=== PATIENT | female | born 1985 | race Caucasian/White ===

== ENCOUNTER 2019-12-05 16:24 | Outpatient (CLI) | payer MEDICAID ==
[2019-12-05] MEDS ORDERED: RINGERS SOLUTION,LACTATED 1,000 ML IV PRN (16:38)
[2019-12-05] MEDS ORDERED: ONDANSETRON HCL INJ/PF 4 MG/2 ML SDV IV ONE (16:38)
[2019-12-05] MEDS ORDERED: ONDANSETRON HCL INJ/PF 4 MG/2 ML SDV ONE (17:01)
[2019-12-05 17:35] LABS: APPEARANCE,URINE CLOUDY; BILIRUBIN,URINE NEGATIVE (NEGATIVE); COLOR,URINE YELLOW; GLUCOSE, URINE NEGATIVE (NEGATIVE); KETONES,URINE 20 mg/dL (NEGATIVE); LEUKOCYTE ESTERASE,URINE TRACE (NEGATIVE); NITRITE,URINE NEGATIVE (NEGATIVE); PROTEIN,URINE NEGATIVE (NEGATIVE); UROBILINOGEN,URINE NEGATIVE mg/dL (<2.0)
--- NOTE | 2019-12-05 17:56 | Non Stress Test Report ---
Non Stress Test Datetime Report Generated by CPN: 12/05/2019 17:55 DEMOGRAPHIC Test Number: 1 EGA NST: 38.2 INDICATION Indication for Study (NST) Other: labor check VITAL SIGNS Temperature - NST: 98.8 Pulse - NST: 83 RESP - NST: 16 NBPSYS NST: 113 NBPDIA NST: 66 MONITORING Monitor Explained: Monitor Explained; Test Explained; Patient Verbalized Understanding Time on Monitor: 12/05/2019 16:46 Time off Monitor: 12/05/2019 17:52 NST Duration: 66 NST INTERVENTIONS NST Interventions: PO Hydration; IV Fluids; Reposition Patient Physician Notified NST: Dr Mederos BABY A: [id number] BABY A Movement : Present Contraction Frequency : 4-8 FHR Baseline : 140 Accelerations : 15X15 Decelerations : None Variability : Moderate 6-25bpm NST Review: Meets Criteria for Reactive NST NST Review and Verified By : LEWIS HALE RN NST Results: Reactive NST REPORT Report Trigger: Send Report
[2019-12-05 18:09] LABS: URINE BARBITURATES SCREEN NEGATIVE; URINE BENZODIAZEPINES SCREEN NEGATIVE; URINE COCAINE SCREEN NEGATIVE; URINE MARIJUANA (THC) SCREEN NEGATIVE; URINE METHADONE SCREEN NEGATIVE; URINE PHENCYCLIDINE SCREEN NEGATIVE
[2019-12-05 18:15] LABS: URINE AMPHETAMINES SCREEN UNCONFIRMED POSITIVE
== END 2019-12-05 18:10 | disposition home or self-care (01) ==
LOC: LC 16:24
PROVIDERS: ATTEND Student in an Organized Health Care Education/Training Program
DX: O99.283 Endocrine, nutritional and metabolic diseases complicating pregnancy, third trimester (principal); E86.0 Dehydration; O21.2 Late vomiting of pregnancy; Z3A.38 38 weeks gestation of pregnancy
CPT/HCPCS: 59025; 36415; 81005; 80307 ×2; G0480; J2405

== ENCOUNTER 2019-12-24 18:29 | Inpatient (IN) | payer MEDICAID ==
[2019-12-24] MEDS ORDERED: DINOPROSTONE 10 MG VAGINAL INSERT.SR PV PRN (19:19)
[2019-12-24] MEDS ORDERED: OXYTOCIN/NORMAL SALINE 20 UNIT/1,000 ML RTUINJ IV PRN (19:19)
[2019-12-24] MEDS ORDERED: RINGERS SOLUTION,LACTATED 1,000 ML IV ONE (19:20)
[2019-12-24] MEDS ORDERED: DINOPROSTONE 10 MG VAGINAL INSERT.SR ONE (19:42)
[2019-12-24] MEDS: RINGERS SOLUTION,LACTATED 1,000 ML IV PRN (19:55)
[2019-12-24 20:34] LABS: ABSOLUTE LYMPHOCYTES (AUTO) 1.5 10^3/uL (0.5-4.7); ABSOLUTE NEUT (AUTO) 7.7 10^3/uL (1.7-8.2); BASOPHILS % (AUTO) 0.1 % (0-2); EOSINOPHILS % (AUTO) 0.5 % (0-6); HEMATOCRIT 35.6 % (36.0-47.0); HEMOGLOBIN 12.6 g/dL (12.0-15.5); LYMPHOCYTES % (AUTO) 14.7 % (13-45); MEAN CORPUSCULAR HEMOGLOBIN 35.1 pg (27.0-33.4); MEAN CORPUSCULAR HGB CONC 35.3 g/dL (32.0-36.0); MEAN CORPUSCULAR VOLUME 99 fl (80-97); MONOCYTES % (AUTO) 9.5 % (3-13); PLATELET COUNT 160 10^3/uL (150-450); RED BLOOD COUNT 3.58 10^6/uL (3.72-5.28); RED CELL DISTRIBUTION WIDTH 13.3 % (11.5-14.0); SEGMENTED NEUTROPHILS % (AUTO) 75.2 % (42-78); TOTAL CELLS COUNTED % (AUTO) 100 %; WHITE BLOOD COUNT 10.3 10^3/uL (4.0-10.5)
[2019-12-24 22:42] LABS: APPEARANCE,URINE CLOUDY; BILIRUBIN,URINE NEGATIVE (NEGATIVE); COLOR,URINE YELLOW; GLUCOSE, URINE NEGATIVE (NEGATIVE); KETONES,URINE NEGATIVE (NEGATIVE); LEUKOCYTE ESTERASE,URINE TRACE (NEGATIVE); NITRITE,URINE NEGATIVE (NEGATIVE); PROTEIN,URINE NEGATIVE (NEGATIVE); UROBILINOGEN,URINE NEGATIVE mg/dL (<2.0)
[2019-12-24 23:01] LABS: URINE AMPHETAMINES SCREEN NEGATIVE; URINE BARBITURATES SCREEN NEGATIVE; URINE BENZODIAZEPINES SCREEN NEGATIVE; URINE COCAINE SCREEN NEGATIVE; URINE MARIJUANA (THC) SCREEN NEGATIVE; URINE METHADONE SCREEN NEGATIVE; URINE PHENCYCLIDINE SCREEN NEGATIVE
[2019-12-25] MEDS ORDERED: PROMETHAZINE HCL INJ 25 MG/1 ML VIAL IV ONE (04:55)
[2019-12-25] MEDS ORDERED: HYDROMORPHONE HCL INJ/PF 2 MG/ML AMPULE IV ONE (04:56)
[2019-12-25] MEDS ORDERED: PROMETHAZINE HCL INJ 25 MG/1 ML VIAL ONE (04:58)
[2019-12-25] MEDS ORDERED: HYDROMORPHONE HCL INJ/PF 2 MG/ML AMPULE ONE (04:58)
--- NOTE | 2019-12-25 06:14 | Admission Physical ---
Datetime Report Generated by CPN: 12/25/2019 06:14 CURRENT ADMISSION Chief Complaint: Scheduled Induction of Labor Indication for Induction: Post Dates Admit Impression : Term, Intrauterine Admit Plan: Admit to Unit Admit Plan- Other: SROM @ 300 am ALLERGIES Medication Allergies: No Medication Allergies: No Known Allergies (12/24/2019) Latex: No Latex Allergies OBSTETRICAL HISTORY EDC: 12/17/2019 00:00 : 1 Para: 0 Term: 0 : 0 SAB: 0 IAB: 0 Ectopic: 0 Livin Cesareans: 0 VBACs: 0 Multiple Births: 0 Gestational Diabetes: No Rh Sensitization: No Incompetent Cervix: No EZEQUIEL: No Infertility: No ART Treatment: No Uterine Anomaly: No IUGR: No Hx Previous C/S: No Macrosomia: No Hx Loss/Stillborn: No PIH: No Hx : No Placenta Previa/Abruption: No Depression/PP Depression: No PTL/PROM: No Post Hemorrhage: No Current Procedures: Ultrasound Obstetrical History Comments: G1-Current SEE RECORDS Alcohol: Yes Alcohol Frequency: Occasional Alcohol Comments: Not during Marijuana : No Cocaine: No Other Illicit Drugs: No Cigarettes: Former Smoker. [id number] Cigarette Comments: Stopped when she found out she was MEDICAL HISTORY Diabetes: No Blood Transfusion: No Pulmonary Disease (Asthma, TB): No Breast Disease: No Hypertension: No Ax Survey Worker Surgery: No Heart Disease: No Hosp/Surgery: No Autoimmune Disorder: No Anesthetic Complications: No Kidney Disease: No Abnormal Pap Smear: No Neuro/Epilepsy: No Psychiatric Disorders: No Other Medical Diseases: No Hepatitis/Liver Disease: No Significant Family History: No Varicosities/Phlebitis: No Trauma/Violence : No Thyroid Dysfunction: No INFECTIOUS HISTORY Gonorrhea: No Genital Herpes: No Chlamydia: No Tuberculosis: No Syphilis: No Hepatitis: No HIV/AIDS Exposure: No Rash or Viral Illness: No HPV: No PHYSICAL EXAM General: Normal HEENT: Normal Neurologic: Normal Thyroid: Normal Heart: Normal Lungs: Normal Breast: Normal Back: Normal Abdomen: Normal Genitourinary Exam: Normal Extremities: Normal DTRs: Normal Pelvic Type: Adequate Vital Signs: Reviewed; Within Normal Limits VAGINAL EXAM Dilatation: 1 Effacement: 80 Station: -2 MEMBRANES Pooling: Positive Membranes: Ruptured Amniotic Fluid Color: Clear FETUS A EGA: 41.1 Monitoring: External US FHR- Baseline: 140 Variability: Moderate 6-25bpm Accelerations: 15X15 Decelerations: None FHR Category: Category I Estimated Weight (gm): 3600 Presentation: Vertex PLANS FOR LABOR AND DELIVERY Labor and Delivery: None Pain Management: Epidural Feeding Preference: Breast Circumcision: Yes INFORMED CONSENT Signature: with User ID: [email or web address]
[2019-12-25] MEDS ORDERED: PHENYLEPHRINE HCL INJ/PF 10 MG/1 ML SDV ONE (07:26)
[2019-12-25] MEDS ORDERED: EPHEDRINE SULFATE INJ 50 MG/1 ML AMPULE ONE (07:26)
[2019-12-25] MEDS ORDERED: FENTANYL CITRATE INJ/PF 100 MCG/2 ML AMPUL ONE (07:26)
[2019-12-25] MEDS ORDERED: BUPIVACAINE HCL 0.25 % INJ/PF (2.5 MG/1 ML) 30 ML VIAL ONE ×2 (07:27→10:11)
[2019-12-25] MEDS ORDERED: FENTANYL/BUPIVACAINE/NS/PF 300 MCG/150 ML RTUINJ EPI ONE (07:27)
[2019-12-25] MEDS ORDERED: OXYTOCIN 10 UNIT/ML VIAL ONE (07:39)
[2019-12-25] MEDS ORDERED: OXYTOCIN/NORMAL SALINE 20 UNIT/1,000 ML RTUINJ ONE (07:40)
[2019-12-25] MEDS ORDERED: LIDOCAINE 1% INJ-PF (10 MG/ML) 30 ML SDV ONE (07:40)
[2019-12-25] MEDS ORDERED: MISOPROSTOL 0.2 MG TABLET ONE (07:40)
[2019-12-25] MEDS ORDERED: OXYTOCIN/NORMAL SALINE 20 UNIT/1,000 ML RTUINJ IV PRN ×2 (08:49→15:50)
[2019-12-25] MEDS ORDERED: LIDOCAINE 2% INJ-PF (20 MG/ML) 10 ML AMPUL ONE (09:42)
[2019-12-25] MEDS: RINGERS SOLUTION,LACTATED 1,000 ML IV PRN (11:21)
[2019-12-25] MEDS ORDERED: GLYCERIN/WITCH HAZEL LEAF 1 EACH MED..WIPE TP PRN (15:50)
[2019-12-25] MEDS ORDERED: ZOLPIDEM TARTRATE 5 MG TABLET PO PRN (15:50)
[2019-12-25] MEDS ORDERED: BENZOCAINE/MENTHOL AEROSOL SPRAY 56 ML TOP PRN (15:50)
[2019-12-25] MEDS ORDERED: PSEUDOEPHEDRINE HCL 30 MG TABLET PO PRN (15:50)
[2019-12-25] MEDS ORDERED: PROMETHAZINE HCL 25 MG TABLET PO PRN (15:50)
[2019-12-25] MEDS ORDERED: DIPH/PERTUSS(ACELL)/TETANUS VAC/PF 0.5 ML SYR (>=10YO) IM PRN (15:50)
[2019-12-25] MEDS ORDERED: ACETAMINOPHEN WITH CODEINE #3 TABLET PO PRN ×2 (15:50)
[2019-12-25] MEDS ORDERED: MEASLES,MUMPS&RUBELLA VACC/PF 0.5 ML VIAL SUBCUT PRN (15:50)
[2019-12-25] MEDS ORDERED: DIBUCAINE 1% OINTMENT 28 GM TP PRN (15:50)
[2019-12-25] MEDS ORDERED: ACETAMINOPHEN 650 MG SUPP.RECT PR PRN (15:50)
[2019-12-25] MEDS ORDERED: PROMETHAZINE HCL 25 MG SUPP.RECT PR PRN (15:50)
[2019-12-25] MEDS ORDERED: DIPHENHYDRAMINE HCL 25 MG CAPSULE PO PRN (15:50)
[2019-12-25] MEDS ORDERED: NA PHOS,M-B/NA PHOS,DI-BA (ADULT) 133 ML ENEMA PR PRN (15:50)
[2019-12-25] MEDS ORDERED: MAGNESIUM HYDROXIDE SUSP 30 ML UDCUP PO PRN (15:50)
[2019-12-25] MEDS ORDERED: PROMETHAZINE HCL INJ 25 MG/1 ML VIAL IV PRN (15:50)
--- NOTE | 2019-12-25 17:23 | Delivery Summary ---
Del Sum A-C Datetime Report Generated by CPN: 12/25/2019 17:22 DELIVERY PERSONNEL DELIVERY PERSONNEL: [id number] Delivery Doctor:: Yaima Ramirez CNM Labor and Delivery Nurse:: Kaity Valdez RNbookmaker's clerk Nurse:: JASON Nj Shoeshiner/MANAGEMENT EXPERT: Sana Anthony Dixonon, MILITARY SOURCE OPERATIONS SPECIALIST MATERNAL INFORMATION Delivery Anesthesia: Local; Epidural Medications After Delivery: Pitocin Bolus-Please Comment; Pitocin Drip 20 Units/1000ml NSS Meds After Delivery Comment: 20 Units Pitocin/ 1000 ml NS Delivery QBL: 150 Maternal Complications: None Provider Comments: LOP, VIABLE MALE WITH SPONTANEOUS CRY. LOOSE NUCHAL CORD-DELIVERED THROUGH. CORD DOUBLE CLAMPED AND CUT. SPONTANEOUS PLACENTA WITH 3VC. 2ND DEGREE PERINEAL LACERATION REPAIRED UNDER EPIDURAL AND LOCAL ANESTHESIA. MOTHER AND INFANT STABLE IN L_D#1 LABOR SUMMARY EDC: 12/17/2019 00:00 No. Babies in Womb: 1 Attempted: No Labor Anesthesia: Epidural LABOR INFORMATION Reason for Induction: Postterm Onset of Labor: 12/25/2019 06:30 Complete Dilatation: 12/25/2019 14:35 Cervical Ripening Agents: Cervidil Oxytocin: Induction Group B Beta Strep: negative Antibiotics # of Doses: 0 Antibiotics Time of Last Dose: n/a Name of Antibiotic Given: n/a Steroids Given: None Reason Steroids Not Administered: Not Applicable MEMBRANES Membranes Rupture Method: Spontaneous Rupture of Membranes: 12/25/2019 03:30 Length of Rupture (hr): 12.02 Amniotic Fluid Color: Bloody Amniotic Fluid Amount: Small Amniotic Fluid Odor: Normal STAGES OF LABOR Stage 1 hr: 8 Stage 1 min: 5 Stage 2 hr: 0 Stage 2 min: 56 Stage 3 hr: 0 Stage 3 min: 5 Total Time in Labor hr: 9 Total Time in Labor min: 6 VAGINAL DELIVERY Episiotomy: None Laceration #1: Perineal Laceration Extension #1: Second Degree Laceration Repair: Yes Sponge Count Correct: N/A Sharps Count Correct: N/A CSECTION DELIVERY Primary Indication: N/A Secondary Indication: N/A CSection Incidence: N/A Labor: N/A Elective: N/A CSection Incision: N/A BABY A INFORMATION Infant Delivery Date/Time: 12/25/2019 15:31 Method of Delivery: Vaginal Nurse Controlled Delivery: No Born in Route : No : N/A Forceps: N/A Vacuum Extraction: N/A Shoulder Dystocia : No PRESENTATION/POSITION BABY A Presentation: Cephalic Cephalic Presentation: Vertex Vertex Position: Right Occipital Posterior Breech Presentation: N/A PLACENTA INFORMATION BABY A Placenta Delivery Time : 12/25/2019 15:36 Placenta Method of Delivery: Spontaneous Placenta Status: Delivered SCORES BABY A Heart Rate 1 min: >100 bpm Resp Effort 1 min: Good Cry Reflex Irritability 1 min: Cough or Sneeze or Pulls Away Muscle Tone 1 min: Active Motion Color 1 min: Blue/Pale Resuscitation Effort 1 min: Tactile Stimulation SCORE 1 MIN: 8 Heart Rate 5 min: >100 bpm Resp Effort 5 min: Good Cry Reflex Irritability 5 min: Cough or Sneeze or Pulls Away Muscle Tone 5 min: Active Motion Color 5 min: Body [place], Extremities Blue Resuscitation Effort 5 min: N/A SCORE 5 MIN: 9 Resuscitation Effort 10 min: N/A INFORMATION BABY A Gestational Age at Delivery: 41.1 Gestational Status: Late Term- 41- 41.6 Weeks Infant Outcome : Liveborn Condition : Stable Sex: Male IDENTIFICATION BABY A Verification Date/Time: 12/25/2019 15:46 ID Band Number: [id number] Mother's Name Verified: Yes Infant RN Verifying : Toñito Riley, RN Additional Verifying Personnel: RFrancisco J Valdez, RN WEIGHT/LENGTH BABY A Birthweight (gm): 3410 Weight (lb): 7 Weight (oz): 8 Infant Length (in): 20.00 Length (cm): 50.80 CORD INFORMATION BABY A No. Cord Vessels: 3 Nuchal Cord : Around Neck x1, Loose Cord Blood Taken: Yes-For Storage (Mom's Blood type +) Infant Suction: None ASSESSMENT BABY A Infant Complications: Multiple Variable Decels; Meconium Complications- Other: terminal mec Physical Findings at Delivery: Caput Succedaneum; Molding of the Head Infant Respirations: Appears Normal Skin to Skin: Yes Instrument Maintenance Supervisor/ALS Called : No Care By: Letitia duronlucityra Transferred To: Remains with Mother BABY B INFORMATION : N/A SIGNATURES Assignment: Alexei Becker MD Signature: with User ID: [email or web address] : with User ID: [email or web address] : I was personally available for consultation and serving as supervising physician for the MLP.
[2019-12-25] MEDS: IBUPROFEN 800 MG TABLET PO SCH ×2 (17:36→22:15)
[2019-12-25] MEDS: DOCUSATE SODIUM 100 MG CAPSULE PO SCH (18:54)
[2019-12-25] MEDS: FERROUS SULFATE 325 MG TABLET PO SCH (18:54)
[2019-12-25] MEDS: FAMOTIDINE 20 MG TABLET PO SCH (22:17)
[2019-12-26] MEDS: IBUPROFEN 800 MG TABLET PO SCH ×3 (06:10→21:35)
[2019-12-26 06:26] LABS: ABSOLUTE EOSINOPHILS # (AUTO) 0.1 10^3/uL (0.0-0.6); ABSOLUTE LYMPHOCYTES (AUTO) 1.7 10^3/uL (0.5-4.7); ABSOLUTE NEUT (AUTO) 9.5 10^3/uL (1.7-8.2); BASOPHILS % (AUTO) 0.3 % (0-2); EOSINOPHILS % (AUTO) 0.4 % (0-6); HEMATOCRIT 30.3 % (36.0-47.0); HEMOGLOBIN 10.7 g/dL (12.0-15.5); LYMPHOCYTES % (AUTO) 13.6 % (13-45); MEAN CORPUSCULAR HEMOGLOBIN 35.3 pg (27.0-33.4); MEAN CORPUSCULAR HGB CONC 35.3 g/dL (32.0-36.0); MEAN CORPUSCULAR VOLUME 100 fl (80-97); MONOCYTES % (AUTO) 8.4 % (3-13); PLATELET COUNT 114 10^3/uL (150-450); RED BLOOD COUNT 3.03 10^6/uL (3.72-5.28); RED CELL DISTRIBUTION WIDTH 13.5 % (11.5-14.0); SEGMENTED NEUTROPHILS % (AUTO) 77.3 % (42-78); TOTAL CELLS COUNTED % (AUTO) 100 %; WHITE BLOOD COUNT 12.3 10^3/uL (4.0-10.5)
[2019-12-26] MEDS: FAMOTIDINE 20 MG TABLET PO SCH ×2 (09:45→21:37)
[2019-12-26] MEDS: FERROUS SULFATE 325 MG TABLET PO SCH ×2 (09:45→17:30)
[2019-12-26] MEDS: DOCUSATE SODIUM 100 MG CAPSULE PO SCH ×2 (09:45→17:30)
[2019-12-26] MEDS: PRENATAL VITAMIN W DHA CAPSULE PO SCH (09:46)
[2019-12-26] MEDS: SENNOSIDES/DOCUSATE 8.6-50 MG 1 EACH TABLET PO SCH (09:46)
--- NOTE | 2019-12-26 12:45 | PDOC PROGRESS REPORT ---
Subjective-OB Progress Note for:: 12/26/19 Subjective: 34yo G1 now P1 s/p ppd 1. Ambulating and voiding without difficulty. Reports pain well tolerated with medication, denies any concerns today. Physical Exam (OB) Vital Signs: Temp Pulse Resp BP Pulse Ox 97.2 F 56 L 16 107/74 97 12/26/19 07:37 12/26/19 07:37 12/26/19 07:37 12/26/19 07:37 12/26/19 07:37 Intake & Output 12/25/19 12/26/19 12/27/19 06:59 06:59 06:59 Intake Total 1000 120 Balance 1000 120 Weight 77.6 kg - General General Appearance: Appears well In distress: None - Episiotomy/Laceration Site Condition: Well Approximated - Lochia Lochia Amount: Scant < 10 ml Lochia Color: Rubra/Red - Abdomen Description: Soft Hernia Present: No Fundal Description: Firm, Midline Fundal Height: u/u - u/2 - Respiratory Respiratory Status: No respiratory distress - Extremities Upper extremity: Normal inspection Lower extremities: Normal inspection - Neurological Cognition: Normal Orientation: AAOx4 - Psychological Associated symptoms: Normal affect, Normal mood Objective-Diagnostic Laboratory: 12/26/19 06:05 12/26/19 06:05 WBC 12.3 H RBC 3.03 L Hgb 10.7 L Hct 30.3 L MCV 100 H MCH 35.3 H MCHC 35.3 RDW 13.5 Plt Count 114 L Seg Neutrophils % 77.3 Assessment and Plan(PN) - Assessment and Plan (1) Acute blood loss anemia Is this a current diagnosis for this admission?: Yes Plan: increase dietary iron and FeSO4 BID (2) Encounter for planned induction of labor Is this a current diagnosis for this admission?: Yes Plan: delivered (3) Normal vaginal delivery Is this a current diagnosis for this admission?: Yes Plan: routine pp care (4) Obstetrical laceration, second degree Is this a current diagnosis for this admission?: Yes Plan: continue monitoring for s/s of infection - Time Spent with Patient Time with patient: Less than 15 minutes Medications reviewed and adjusted accordingly: Yes - Disposition Anticipated Discharge: Home Within: within 24 hours
[2019-12-27] MEDS: IBUPROFEN 800 MG TABLET PO SCH (05:28)
[2019-12-27 07:23] LABS: HEMATOCRIT 31.5 % (36.0-47.0); MEAN CORPUSCULAR VOLUME 100 fl (80-97); PLATELET COUNT 119 10^3/uL (150-450); RED BLOOD COUNT 3.16 10^6/uL (3.72-5.28); RED CELL DISTRIBUTION WIDTH 13.4 % (11.5-14.0); WHITE BLOOD COUNT 8.1 10^3/uL (4.0-10.5)
[2019-12-27 08:11] VITALS: BP 121/72
[2019-12-27] MEDS: DOCUSATE SODIUM 100 MG CAPSULE PO SCH (09:57)
[2019-12-27] MEDS: PRENATAL VITAMIN W DHA CAPSULE PO SCH (09:57)
[2019-12-27] MEDS: SENNOSIDES/DOCUSATE 8.6-50 MG 1 EACH TABLET PO SCH (09:57)
[2019-12-27] MEDS: FERROUS SULFATE 325 MG TABLET PO SCH (09:57)
[2019-12-27] MEDS: FAMOTIDINE 20 MG TABLET PO SCH (09:57)
--- NOTE | 2019-12-27 10:44 | PDOC DISCHARGE SUMMARY ---
Impression - Admit/DC Date/PCP Admission Date/Primary Care Provider: 12/24/19 18:29 NO [facility] Discharge Date: 12/27/19 - Discharge Diagnosis (1) Acute blood loss anemia Is this a current diagnosis for this admission?: Yes (2) Encounter for planned induction of labor Is this a current diagnosis for this admission?: Yes (3) Normal vaginal delivery Is this a current diagnosis for this admission?: Yes (4) Obstetrical laceration, second degree Is this a current diagnosis for this admission?: Yes - Additional Information Resuscitation Status: Full Code Discharge Diet: Regular Discharge Activity: Balance Activity w/Rest, Pelvic Rest, Slowly Increase Activity Referrals: [facility],NO [Primary Care Provider] - Prescriptions: Ibuprofen [Motrin 800 mg Tablet] 800 mg PO Q8HP PRN #60 tablet PRN Reason: Home Medications: Vit/Dha [ Multi + Dha Capsule] 1 cap PO DAILY 12/24/19 Ibuprofen [Motrin 800 mg Tablet] 800 mg PO Q8HP PRN #60 tablet 12/27/19 Results Laboratory Results: WBC 8.1 10^3/uL (4.0-10.5) 12/27/19 06:35 RBC 3.16 10^6/uL (3.72-5.28) L 12/27/19 06:35 Hgb 11.0 g/dL (12.0-15.5) L 12/27/19 06:35 Hct 31.5 % (36.0-47.0) L 12/27/19 06:35 MCV 100 fl (80-97) H 12/27/19 06:35 MCH 35.0 pg (27.0-33.4) H 12/27/19 06:35 MCHC 35.0 g/dL (32.0-36.0) 12/27/19 06:35 RDW 13.4 % (11.5-14.0) 12/27/19 06:35 Plt Count 119 10^3/uL (150-450) L 12/27/19 06:35 Lymph % (Auto) 13.6 % (13-45) 12/26/19 06:05 [place] % (Auto) 8.4 % (3-13) 12/26/19 06:05 Eos % (Auto) 0.4 % (0-6) 12/26/19 06:05 Baso % (Auto) 0.3 % (0-2) 12/26/19 06:05 Absolute Neuts (auto) 9.5 10^3/uL (1.7-8.2) H 12/26/19 06:05 Absolute Lymphs (auto) 1.7 10^3/uL (0.5-4.7) 12/26/19 06:05 Absolute Monos (auto) 1.0 10^3/uL (0.1-1.4) 12/26/19 06:05 Absolute Eos (auto) 0.1 10^3/uL (0.0-0.6) 12/26/19 06:05 Absolute Basos (auto) 0.0 10^3/uL (0.0-0.2) 12/26/19 06:05 Seg Neutrophils % 77.3 % (42-78) 12/26/19 06:05 Urine Color YELLOW 12/24/19 18:36 Urine Appearance CLOUDY 12/24/19 18:36 Urine pH 6.0 (5.0-9.0) 12/24/19 18:36 Ur Specific [place] 1.020 12/24/19 18:36 Urine Protein NEGATIVE mg/dL (NEGATIVE) 12/24/19 18:36 Urine Glucose (UA) NEGATIVE mg/dL (NEGATIVE) 12/24/19 18:36 Urine Ketones NEGATIVE mg/dL (NEGATIVE) 12/24/19 18:36 Urine Blood NEGATIVE (NEGATIVE) 12/24/19 18:36 Urine Nitrite NEGATIVE (NEGATIVE) 12/24/19 18:36 Urine Bilirubin NEGATIVE (NEGATIVE) 12/24/19 18:36 Urine Urobilinogen NEGATIVE mg/dL (<2.0) 12/24/19 18:36 Ur Leukocyte Esterase TRACE (NEGATIVE) H 12/24/19 18:36 Urine Ascorbic Acid NEGATIVE (NEGATIVE) 12/24/19 18:36 Urine Opiates Screen NEGATIVE 12/24/19 18:36 Urine Methadone Screen NEGATIVE 12/24/19 18:36 Ur Barbiturates Screen NEGATIVE 12/24/19 18:36 Ur Phencyclidine Scrn NEGATIVE 12/24/19 18:36 Ur Amphetamines Screen NEGATIVE 12/24/19 18:36 U Benzodiazepines Scrn NEGATIVE 12/24/19 18:36 Urine Cocaine Screen NEGATIVE 12/24/19 18:36 U Marijuana (THC) Screen NEGATIVE 12/24/19 18:36 RPR NONREACTIVE (NONREACTIVE) 12/24/19 20:16 Blood Type O POSITIVE 12/24/19 20:16 Antibody Screen NEGATIVE 12/24/19 20:16
== END 2019-12-27 13:00 | disposition home or self-care (01) | DRG 806 ==
LOC: LR 18:29 → 2S 12-25 17:55
PROVIDERS: ADMIT Obstetrics & Gynecology; ATTEND Obstetrics & Gynecology
PROC: 10E0XZZ Delivery of Products of Conception, External Approach (ICD-10-PCS; principal; 2019-12-25)
PROC: 0KQM0ZZ Repair Perineum Muscle, Open Approach (ICD-10-PCS; 2019-12-25)
PROC: 3E033VJ Introduction of Other Hormone into Peripheral Vein, Percutaneous Approach (ICD-10-PCS; 2019-12-25)
DX: O48.0 Post-term pregnancy (principal); D62 Acute posthemorrhagic anemia; Z37.0 Single live birth; O90.81 Anemia of the puerperium; O70.1 Second degree perineal laceration during delivery; O69.81X0 Labor and delivery complicated by cord around neck, without compression, not applicable or unspecified; Z87.891 Personal history of nicotine dependence; Z3A.41 41 weeks gestation of pregnancy
CPT/HCPCS: 36415; 80307; 81005; 85025; 85027; 86592; 86850; 86900; 86901; 94760; J1170; J2370; J2550; J2590; J3010; J3490